=== PATIENT | female | born 1995 | race Caucasian/White ===

== ENCOUNTER 2017-08-03 19:35 | Emergency (ER) | payer SELFPAY ==
[~2017-08-03] VITALS: Ht 165.1 cm; Wt 63.5 kg
[~2017-08-03 19:35] MED LIST: BACTRIM DS 8001 TA1 PO; MEDROL DOSEPAK4 MG PO; SEPTRA DS 800 M1 TAB PO
[2017-08-03] MEDS ORDERED: NAPROXEN SOD.550 MG PO (19:52)
[2017-08-03] MEDS ORDERED: CYCLOBENZAPRINE5 M3 PO (19:52)
[2017-08-03 20:05] LABS: BILIRUBIN NEGATIVE (NEGATIVE); BLOOD 2+ (NEGATIVE); CLARITY SL CLOUDY (CLEAR); COLOR YELLOW (YELLOW); GLUCOSE NEGATIVE (NEGATIVE); KETONE NEGATIVE (NEGATIVE); LEUKO ESTERASE NEGATIVE (NEGATIVE); NITRITE NEGATIVE (NEGATIVE); SPECIFIC GRAVITY 1.015 (1.005-1.030)
[2017-08-03 20:11] LABS: BACTERIA 2+
[2017-08-03 21:02] VITALS: BP 125/79
[2017-08-03] MEDS ORDERED: Motrin,Rufen800 MG PO (21:05)
[2017-08-03] MEDS ORDERED: ZOFRAN ODT4 MG SL (21:05)
== END 2017-08-03 21:09 | disposition home or self-care (01) ==
LOC: ED
PROVIDERS: Emergency Medicine Emergency Medical Services
DX: G43.909 Migraine, unspecified, not intractable, without status migrainosus (principal); Z88.1 Allergy status to other antibiotic agents; Z79.899 Other long term (current) drug therapy; Z88.0 Allergy status to penicillin

== ENCOUNTER 2017-08-05 23:12 | Emergency (ER) | payer SELFPAY ==
[~2017-08-05] VITALS: Ht 165.1 cm; Wt 63.5 kg
[~2017-08-05 23:12] MED LIST changes: +CYCLOBENZAPRINE5 M3 PO; +Motrin,Rufen800 MG PO; +NAPROXEN SOD.550 MG PO; +ZOFRAN ODT4 MG SL
[2017-08-05 23:13] VITALS: BP 127/85
[2017-08-05] MEDS ORDERED: VISTARIL25 M2 PO (23:50)
== END 2017-08-06 00:15 | disposition home or self-care (01) ==
LOC: ED 23:12
DX: B01.9 Varicella without complication (principal); Z88.1 Allergy status to other antibiotic agents; Z88.0 Allergy status to penicillin

== ENCOUNTER 2019-05-06 22:16 | Emergency (ER) | payer OTHER ==
[~2019-05-06] VITALS: Ht 167.6 cm; Wt 62.6 kg
[~2019-05-06 22:16] MED LIST changes: +VISTARIL25 M2 PO
[2019-05-06 22:24] VITALS: BP 130/83
[2019-05-07] MEDS ORDERED: VIBRAMYCIN100 MG PO (01:35)
[2019-05-07] MEDS ORDERED: CLARITIN10 MG PO (01:35)
== END 2019-05-07 01:57 | disposition home or self-care (01) ==
LOC: ED 22:16
DX: J40 Bronchitis, not specified as acute or chronic (principal); J04.0 Acute laryngitis; J32.9 Chronic sinusitis, unspecified; G43.909 Migraine, unspecified, not intractable, without status migrainosus; Z88.0 Allergy status to penicillin; Z88.1 Allergy status to other antibiotic agents; Z79.899 Other long term (current) drug therapy

== ENCOUNTER 2022-01-19 16:14 | Emergency (ER) | payer SELFPAY ==
[~2022-01-19] VITALS: Ht 170.1 cm; Wt 67.1 kg
[~2022-01-19 16:14] MED LIST changes: +CLARITIN10 MG PO; +VIBRAMYCIN100 MG PO
[2022-01-19 16:17] VITALS: BP 130/83
[2022-01-19] MEDS ORDERED: Motrin,Rufen800 MG PO (18:33)
== END 2022-01-19 18:43 | disposition home or self-care (01) ==
LOC: ED 16:14
DX: S29.012A Strain of muscle and tendon of back wall of thorax, initial encounter (principal); Z88.1 Allergy status to other antibiotic agents; Z88.0 Allergy status to penicillin; X58.XXXA Exposure to other specified factors, initial encounter; Y93.89 Activity, other specified; Y92.89 Other specified places as the place of occurrence of the external cause; Y99.8 Other external cause status

== ENCOUNTER 2024-02-20 03:11 | Emergency (ER) | payer SELFPAY ==
[~2024-02-20] VITALS: Ht 167.6 cm; Wt 78.0 kg
[2024-02-20 03:25] VITALS: BP 130/86
[2024-02-20] MEDS ORDERED: methylPREDNISolone sod succ 125 MG VIAL IM ONE (04:45)
[2024-02-20] MEDS ORDERED: Ondansetron4 MG PO (04:49)
[2024-02-20] MEDS ORDERED: PREDNISONE20 M1 PO (04:49)
[2024-02-20] MEDS ORDERED: ZITHROMAX250 MG PO (04:49)
== END 2024-02-20 05:05 | disposition home or self-care (01) ==
LOC: ED 03:11
DX: B34.9 Viral infection, unspecified (principal); Z20.822 Contact with and (suspected) exposure to COVID-19; Z88.0 Allergy status to penicillin; Z88.1 Allergy status to other antibiotic agents

== ENCOUNTER 2024-06-13 00:25 | Emergency (ER) | payer SELFPAY ==
[~2024-06-13] VITALS: Ht 167.6 cm; Wt 72.6 kg
[~2024-06-13 00:25] MED LIST changes: +Ondansetron4 MG PO; +PREDNISONE20 M1 PO; +ZITHROMAX250 MG PO
[2024-06-13] MEDS ORDERED: SODIUM CHLORIDE 0.9% 100 ML BAG IV ONE (01:55)
[2024-06-13] MEDS ORDERED: IOHEXOL 350 MG/ML 100 ML VIAL IV ONE (01:55)
[2024-06-13 01:56] LABS: BASO % 0.2 % (0.0-1.0); EOS # 0.1 10*3/uL (0.0-0.4); EOS % 0.9 % (1.0-4.0); HEMATOCRIT 42.4 % (37.0-47.0); MEAN CELL VOLUME 87.8 fl (81.0-99.0); MEAN CORPUSCULAR HGB 29.4 pg (27.0-31.0); MEAN CORPUSCULAR HGB CONC 33.5 g/dl (33.0-37.0); MEAN PLATELET VOLUME 9.6 fl (9.6-12.3); MONO # 0.8 10*3/uL (0.1-1.0); MONO % 7.7 % (3.0-9.0); NEUT # 6.4 10*3/uL (2.3-7.9); NEUT % 63.9 % (47.0-73.0); PLATELET COUNT AUTOMATED 368 10*3/uL (130-400); RED BLOOD COUNT 4.83 10*6/uL (4.10-5.10); RED CELL DISTRI WIDTH 12.4 % (0-14.5)
[2024-06-13 02:16] LABS: BUN 7 mg/dl (9-23); CHLORIDE 103 mmol/L (98-107); POTASSIUM 3.4 mmol/L (3.4-5.1)
[2024-06-13] MEDS ORDERED: Ondansetron Hydrochloride 4 MG/2 ML VIAL IV ONE (02:35)
[2024-06-13 06:00] VITALS: BP 129/62
== END 2024-06-13 08:42 | disposition home or self-care (01) ==
LOC: ED 00:25
PROVIDERS: Emergency Medicine
DX: R06.02 Shortness of breath (principal); Z20.822 Contact with and (suspected) exposure to COVID-19; M79.662 Pain in left lower leg; M79.661 Pain in right lower leg; R25.2 Cramp and spasm; Z88.0 Allergy status to penicillin; Z88.1 Allergy status to other antibiotic agents